=== PATIENT | female | born 1945 | race Caucasian/White ===

== ENCOUNTER 2017-07-16 03:21 | Inpatient (IN) | payer OTHER ==
[~2017-07-16] VITALS: Ht 162.6 cm; Wt 81.6 kg
[~2017-07-16 03:21] MED LIST: DOXYCYCLINE MO100 MG PO; KLOR-CON 1010 ME1 PO; MEDROL DOSEPAK1 PAC PO; TRIAMTERENE-HC1 EAC1 PO
--- NOTE | 2017-07-16 15:09 | Operative Report ---
Operative/Inv Procedure Report Surgery Date: 07/16/17 Name of Procedure: Laparoscopic right colectomy Pre-Operative Diagnosis: Adenocarcinoma involving distal ascending colon Post-Operative Diagnosis: Adenocarcinoma involving distal adenocarcinoma Estimated Blood Loss: scant Surgeon/Assistant Paralegal: Bi Lim Jr., DO Anesthesia: general endotracheal tube, block Monitors: Per routine Implants: None Urine Output: Adequate Drains: None Specimens: Right colon with portion of terminal ileum Complications: None Condition: Good Operative Indication: This is a 71-year-old female who had a colonoscopy for the evaluation of microscopic anemia. She was found to have a mass at about the level of the hepatic flexure which was described as an apple core lesion. Biopsies were performed and proved this lesion to be a adenocarcinoma. Preoperative CT scans were obtained and did not demonstrate evidence of metastasis. She underwent preoperative risk assessment and clearance and then was scheduled for surgery Operative/Procedure Note Note: On the day before her operation she did a bowel prep at home including oral laxatives and oral antibiotics. 3 hours before coming to the hospital she drinks 12 ounces of juice. She presented to [facility] she received IV antibiotics prior to induction of anesthesia and she received oral alvimopan in the holding area. She was taken into the operating room placed in supine position on the operating table. She underwent induction of general anesthesia, and an endotracheal tube was placed. A Rowell catheter was placed and bilateral tap blocks were performed by the anesthesia department. His left arm was tucked and then the abdomen was prepped and draped in usual fashion. We gained access to the abdominal cavity using a Almazan technique. Almazan port was placed suprapubic umbilical in the midline. The abdomen was insufflated to 15 mmHg and 3 additional 5 mm ports were placed: Left lower quadrant, left upper quadrant and suprapubic. Next laparoscopic exploration of the abdominal cavity was performed. The liver appeared normal. The tattoo was visible on the proximal side of the hepatic flexure. The cecum was grasped and elevated towards the anterior abdominal wall. This caused tenting the mesentery and I could see the ileocolic vascular pedicle. A window was made along the inferior edge of the pedicle in the retroperitoneal space was entered. Through this window identified the duodenum and bluntly swept the duodenum towards the midline. The ileocolic vessels were then skeletonized and divided with the vessel sealing device. Next a medial lateral dissection was performed the posterior nasal colon from introitus fascia and the retroperitoneum. I continued this dissection into the lateral wall of the abdominal cavity in the lesser sac were entered. White line of Toldt was taken down, and portion of the gastrocolic ligament was taken down. At this point we had completely mobilized the right colon to the midtransverse colon. A grasper was used to hold the appendix and the Almazan port was lengthened to 5 cm. A wound protector was placed through this port and the specimen was easily extracted. Chose my proximal site of transection and cleared the mesentery here with the LigaSure. The terminal ileum was divided with the ADONAY stapler 80 mm blue load. I chose my distal site of transection at least 5 cm beyond the palpable tumor. The mesentery was cleared here with the vessel sealer and once again a ADONAY 80 mm blue load stapler was used to divide the bowel. The specimen was removed from the field. The 2 transected portions of the bowel were aligned and tacked together with a Vicryl suture. 2 enterotomies were intentionally created by excising the corners of the staple lines. A ADONAY 80 stapler was used to create a common channel. One arm of the stapling device was placed down each limb of the bowel. The stapler was closed and fired. I inspected the lumen which was widely patent and nonbleeding. The edges of the enterotomy were approximated with Allis clamps and a TA 60 was used to close the enterotomy. 3-0 Vicryl sutures were placed in the crotch of the staple line to prevent tension on the staple line. The anastomosis was reduced back into the abdominal cavity. The wound protector and dirte instruments were removed from the field. New clean measurements were brought onto the field and we began closure. The fascia at the extraction port was closed with a running 0 PDS suture. The subcutaneous tissue was copious irrigated with sterile saline and the incision was closed with skin rosario. The three 5 mm ports were closed with skin glue. Dry sterile dressing was applied over the extraction site The patient was exiting operating room taken recovery area in good condition. She tolerated the procedure well and at the end of the procedure all needle sponges and measurements were accounted for. Findings: Tumor and distal ascending colon Discharge Disposition: Same Day Admissions CC: Gilberto JERRY,Liyah
--- NOTE | 2017-07-16 16:30 | Admission Core Measures ---
Acute Coronary Syndrome (CM) ACS Core Measures Acute Coronary Syndrome Diagnosis No Congestive Heart Failure (NEW) CHF Core Measures Congestive Heart Failure Diagnosis No Cerebrovascular Accident (NEW) CVA Core Measures CVA/TIA Diagnosis No Venous Thromboembolism VTE Core Dickson (View Protocol) VTE Risk Factors Age>40 No Mechanical VTE Prophylaxis d/t N/A MechProphylax Ordered No VTE Pharm Prophylaxis d/t NA PharmProphylax ordered Problem List As ranked by this Provider includes Assessment & Plan 1. Status post partial resection of colon 2. Colon cancer HOME MEDS Home Med List Potassium Chloride (Klor-Con 10) 10 MEQ TABLET.ER 1 TAB PO DAILY SUPPLEMENT ( Reported) Triamterene/Hydrochlorothiazid (Triamterene-Hctz 37.5-25 MG Tb) 37.5 MG-25 MG TABLET 1 TAB PO DAILY BP (Reported)
--- NOTE | 2017-07-16 16:33 | Surgical Discharge Summary ---
Visit Information Visit Dates Admission Date: 07/16/17 History of Present Illness Chief Complaint: colon cancer, required laparoscopic right-sided hemicolectomy Medical History Cardiovascular: hypertension Cancer(s): BREAST CA RIGHT Isolation History: Standard Psychosocial History What is Your Primary Language? Georgian Hospital Course Course Attending Physician: Bi Lim Jr., DO Primary Care Physician: Isidro Gamez DO Hospital Course: The patient underwent a laparoscopic right-sided hemicolectomy which went without complications. Patient did well postoperatively, her diet was advanced as tolerated, her vital signs are stable her lab values were acceptable, she received heparin subcutaneous for DVT prophylaxis, she is up and ambulatory and had spontaneous return of bowel function and was discharged home in stable condition. Complications: None Allergies: Coded Allergies: latex (Intermediate, RASH 03/22/16) oxycodone (From Percocet) (COLD SWEATS 03/22/16) Disposition Summary Disposition Principal Diagnosis: Right-sided colon cancer Additional Diagnosis: Same status post right hemicolectomy Discharge Disposition: home or self care Discharge Instructions General Discharge Information Code Status: Full Code Patient's Diet: Regular Patient's Activity: No lifting greater than 10 pounds, no straining Follow-Up Instructions/Appts: To follow-up with Bi Lim DO in 7-10 days Medications at Discharge Discharge Medications: Continue taking these medications: Potassium Chloride (Klor-Con 10) 10 MEQ TABLET.ER 1 Tablet ORAL DAILY Triamterene/Hydrochlorothiazid (Triamterene-Hctz 37.5-25 MG Tb) 37.5 MG-25 MG TABLET 1 Tablet ORAL DAILY
--- NOTE | 2017-07-16 16:36 | Patient Discharge Instructions ---
Discharge Instructions General Discharge Information You were seen/treated for: Right-sided colon cancer status post laparoscopic Hemicolectomy You had these procedures: Laparoscopic right-sided hemicolectomy Watch for these problems: Worsening abdominal pain, nausea, vomiting, fever, abdominal distention, drainage from the wounds, redness from the wounds Call Surgeon to remove: Rayshawn (7-10 days) Do not soak the wound: Yes No bath, but you may shower: Yes Other wound care: Band-Aids tp incisions Diet Continue normal diet: Yes Recommended Diet: Low Residue Activity Full Activity/No Limits: No Activity Self Limited: Yes Pounds, do NOT lift more than: 10 Acute Coronary Syndrome Inclusion Criteria At DC or during hospital stay patient has or had the following: ACS DIAGNOSIS No Discharge Core Measures Meds if any: Prescribed or Continued at Discharge Meds if any: NOT Prescribed or Continued at Discharge Congestive Heart Failure Inclusion Criteria At DC or during hospital stay patient has or had the following: CHF DIAGNOSIS No Discharge Core Measures Meds if any: Prescribed or Continued at Discharge Meds if any: NOT Prescribed or Continued at Discharge Cerebrovascular accident Inclusion Criteria At DC or during hospital stay patient has or had the following: CVA/TIA Diagnosis No Discharge Core Measures Meds if any: Prescribed or Continued at Discharge Meds if any: NOT Prescribed or Continued at Discharge Venous thromboembolism Inclusion Criteria VTE Diagnosis No VTE Type NONE VTE Confirmed by (Test) NONE Discharge Core Measures - Per Current guidelines, there needs to be overlap - treatment for the first 5 days of Warfarin therapy. - If discharged on Warfarin prior to 5 days of - overlap therapy, the patient will need to be - assessed for post discharge needs including - *Post discharge parental anticoagulation - *Warfarin and/or parental anticoagulation education - *Follow up date to check INR post discharge At least 5 days overlap therapy as Inpatient No Meds if any: Prescribed or Continued at Discharge Note: Overlap Therapy is Warfarin and Anticoagulant Meds if any: NOT Prescribed or Continued at Discharge
--- NOTE | 2017-07-16 17:24 | PN- General Surgery ---
Subjective Subjective: POC: mild soreness of the mid abdominal region. no other complaints. no nv. Objective Vital Signs and I&Os Intake & Output 07/16 1600 07/16 0000 07/15 0000 Intake Total Output Total Balance Patient 180 lb Weight vital Signs stable, afebrile Physical Exam: Well-developed well-nourished no apparent distress. HEENT: Atraumatic, extraocular motion intact Neck: Supple, no lymphadenopathy Respiratory: No respiratory distress Abdomen: dressings clean dry and intact. Minimal midline abdominal tenderness as expected. EXtremities: No edema, no calf pain Neuro: Alert and oriented x3 Psych: Mood affect normal, normal memory normal judgment. Skin: Warm and dry, no rash on exposed skin Assessment/Plan Assessment/Plan Postop day #0 status post right-sided laparoscopic hemicolectomy secondary to colon cancer Clears for now Pain medication as needed IV fluids Following labs in a.m. Heparin subcutaneous for DVT ppx Dressing change pod2 Monitor for return of bowel function Core Measures Venous Thromboembolism VTE Risk Factors Age>40 No Mechanical VTE Prophylaxis d/t N/A MechProphylax Ordered No VTE Pharm Prophylaxis d/t NA PharmProphylax ordered
[2017-07-16 17:53] VITALS: BP 122/70
[2017-07-16 20:00] VITALS: BP 124/70
[2017-07-17 00:23] VITALS: BP 116/70
[2017-07-17 03:57] VITALS: BP 118/64
--- NOTE | 2017-07-17 07:58 | PN- General Surgery ---
See Addendum Subjective Subjective: Awake, alert No complaints overnight Pain is tolerable with meds although she hasn't ambulated yet and is afraid she may need something stronger than tylenol IV - she doesn't want narcotics. Mild nausea with clears last night - tolerating water overnight - has not had a breakfast tray delivered yet this morning but is not nauseated now. No flatus yet but feels "gurgling" Objective Vital Signs and I&Os Vital Signs Date Time Temp Pulse Resp B/P B/P Pulse O2 O2 Flow FiO2 Mean Ox Delivery Rate 07/17 0357 97.5 63 20 118/64 97 Nasal 2.0L Cannula 07/17 0023 97.6 71 20 116/70 96 Nasal 2.0L Cannula 07/17 0000 Nasal 2.0L Cannula 07/16 1999 97.5 72 18 124/70 98 Nasal 1.0L Cannula 07/16 1936 Nasal 2.0L Cannula 07/16 1846 96 Nasal 3.0L Cannula 07/16 1753 97.9 70 18 122/70 96 Nasal 3.0L Cannula Intake & Output 07/17 0800 07/17 0000 07/16 1600 07/16 0800 07/16 0000 07/15 1600 Intake Total 1185 370 Output Total 1200 250 Balance -15 120 Intake, IV 945 250 Intake, Oral 240 120 Number 0 0 Bowel Movements Output, 0 Drainage Output, Urine 1200 250 Patient 180 lb 180 lb Weight Weight Reported by Patient Measurement Method Physical Exam: afebrile, vss General: alert and oriented times three nael: clear anteriorly bilaterally, RRR Abd: soft, nondistended, good bs throughout Wound: dressed, dry Ext: warm, no edema, no calf tenderness, ALPS in place Current Medications: Current Medications Sig/Rohan Start time Last Medication Dose Route Stop Time Status Admin Acetaminophen 1,000 MG Q6P PRN 07/16 1915 AC 07/17 N/A 1 UNIT IV 0418 Acetaminophen 650 MG Q6P PRN 07/16 1800 DC PO Alvimopan 12 MG BID 07/17 1000 AC PO 07/23 0959 Alvimopan 12 MG ONCE ONE 07/16 1045 DC PO 07/16 1046 Dextrose/Sodium 1,000 ML Q13H 07/17 0515 AC 07/17 Chloride IV 0532 Dextrose/Sodium 1,000 ML .[id number] 07/16 1800 DC 07/16 Chloride IV 1852 Fentanyl Citrate 250 MCG .STK-MED ONE 07/16 1110 DC IM 07/16 1111 Heparin Sodium 5,000 UNIT Q8 07/16 2200 AC 07/17 (Porcine) SC 0532 Hydromorphone HCl 2 MG .STK-MED ONE 07/16 1539 DC IM 07/16 1540 Hydromorphone HCl 2 MG .STK-MED ONE 07/16 1501 DC IM 07/16 1502 Hydromorphone HCl 2 MG .STK-MED ONE 07/16 1110 DC IM 07/16 1111 Influenza Virus 0.5 ML ONCE ONE 07/16 1830 DC Vaccine IM 07/16 1831 Meperidine HCl 50 MG .STK-MED ONE 07/16 1500 DC IM 07/16 1501 Midazolam HCl 2 MG .STK-MED ONE 07/16 1110 DC IM 07/16 1111 Morphine Sulfate 2 MG Q2P PRN 07/16 1900 AC IV Morphine Sulfate 4 MG Q2P PRN 07/16 1800 DC IV Morphine Sulfate 6 MG Q2P PRN 07/16 1800 DC IV Omeprazole 40 MG DAILY AC 07/17 0700 AC 07/17 PO 0532 Ondansetron HCl 4 MG Q6P PRN 07/16 1800 AC IV Potassium Chloride 10 MEQ DAILY 07/17 1000 AC PO Promethazine HCl 12.5 MG Q6P PRN 07/16 1800 AC IV 07/23 1429 Scopolamine HBr 0 .STK-MED ONE 07/16 1240 DC TOP Triamterene/HCTZ 1 CAP DAILY 07/17 1000 AC PO Assessment/Plan Assessment/Plan 71yo female s/p lap right colectomy pod 1 continue entereg until bowel function returns hep sc for dvt ppx ambulate add toradol for pain continue clears this morning - advance if flatus Core Measures Venous Thromboembolism VTE Risk Factors Age>40 No Mechanical VTE Prophylaxis d/t N/A MechProphylax Ordered No VTE Pharm Prophylaxis d/t NA PharmProphylax ordered
[2017-07-17 08:09] VITALS: BP 118/62
[2017-07-17 09:37] LABS: ABSOLUTE BASOPHIL COUNT 0 /CUMM (0.0-0.2); ABSOLUTE EOSINOPHIL COUNT 0 /CUMM (0.0-0.7); ABSOLUTE LYMPH COUNT 0.7 /CUMM (1.2-3.4); ABSOLUTE MONOCYTE COUNT 0.4 /CUMM (0.10-0.60); BASOPHIL % 0 % (0.0-2.0); EOSINOPHIL % 0 % (0-5); GRANULOCYTE % 93.1 % (42.2-75.2); HEMATOCRIT 33.2 % (37-47); MEAN CORPUSCULAR HGB 23.7 PG (27.0-31.0); MEAN CORPUSCULAR HGB CONC 31.8 G/DL (33.0-37.0); MEAN CORPUSCULAR VOLUME 74.7 FL (81.0-99.0); MEAN PLATELET VOLUME 8.1 FL (7.4-10.4); PLATELET COUNT 269 /CUMM (130-400); RBC DISTRIBUTION WIDTH 17.7 % (11.5-14.5); RED BLOOD CELL CT 4.45 /CUMM (4.20-5.40); WHITE BLOOD CELL COUNT 15.1 /CUMM (4.8-10.8)
[2017-07-17 12:05] VITALS: BP 124/58
[2017-07-17 16:00] VITALS: BP 128/52
[2017-07-17 22:15] VITALS: BP 134/68
[2017-07-18 06:13] VITALS: BP 136/82
--- NOTE | 2017-07-18 08:33 | PN- General Surgery ---
See Addendum Subjective Subjective: Patient with complaining of gas pain and mild distention. She is tolerating her clear liquid diet. She is having small amounts of flatus. She states she only got up and walked one time yesterday. Pain is controlled with pain medication. No fever, no flulike illness Objective Vital Signs and I&Os Vital Signs Date Time Temp Pulse Resp B/P B/P Pulse O2 O2 Flow FiO2 Mean Ox Delivery Rate 07/18 0613 97.7 78 20 136/82 96 Room Air 07/17 2215 98.0 60 16 134/68 94 Room Air 07/17 1600 98.0 61 16 128/52 97 Room Air 07/17 1205 97.6 68 20 124/58 98 Nasal 2.0L Cannula Intake & Output 07/18 1600 07/18 0800 07/18 0000 07/17 1600 07/17 0800 07/17 0000 Intake Total 988 528 1921 1185 370 Output Total 8428 950 7759 1200 250 Balance -210 -235 -80 -15 120 Intake, IV 600 225 500 945 250 Intake, Oral 240 240 600 240 120 Number 0 0 0 Bowel Movements Output, 0 Drainage Output, Urine 2564 342 9884 1200 250 Patient 180 lb Weight Weight Reported by Patient Measurement Method Physical Exam: Well-developed well-nourished no apparent distress. HEENT: Atraumatic, extraocular motion intact Neck: Supple, no lymphadenopathy Respiratory: No respiratory distress Abdomen: Mild to moderate distention, appropriately tender midline, dressing is clean dry and intact. Positive bowel sounds Extremities: No edema, no calf pain Neuro: Alert and oriented x3 Psych: Mood affect normal, normal memory normal judgment. Skin: Warm and dry, no rash on exposed skin Results Last 48 Hours of Labs: Laboratory Tests 07/18 07/17 0721 0728 Chemistry Sodium (137 - 145 mmol/L) Pending 141 Potassium (3.5 - 5.1 mmol/L) Pending 3.9 Chloride (98 - 107 mmol/L) Pending 103 Carbon Dioxide (22 - 30 mmol/L) Pending 25 Anion Gap (5 - 16) Pending 12 BUN (7 - 17 mg/dL) Pending 13 Creatinine (0.5 - 1.0 mg/dL) Pending 0.6 Estimated GFR (>60 ml/min) > 60 BUN/Creatinine Ratio (7 - 25 %) Pending 21.7 Hematology CBC w Diff MAN DIFF ORDERED WBC (4.8 - 10.8 /CUMM) 15.1 H RBC (4.20 - 5.40 /CUMM) 4.45 Hgb (12.0 - 16.0 G/DL) 10.6 L Hct (37 - 47 %) 33.2 L MCV (81.0 - 99.0 FL) 74.7 L MCH (27.0 - 31.0 PG) 23.7 L RDW (11.5 - 14.5 %) 17.7 H Plt Count (130 - 400 /CUMM) 269 MPV (7.4 - 10.4 FL) 8.1 Gran % (42.2 - 75.2 %) 93.1 H Lymphocytes % (20.5 - 51.1 %) 4.5 L Monocytes % (1.7 - 9.3 %) 2.4 Eosinophils % (0 - 5 %) 0 Basophils % (0.0 - 2.0 %) 0 Absolute Granulocytes (1.4 - 6.5 /CUMM) 14.0 H Segmented Neutrophils (42.2 - 75.2 %) 78 H Band Neutrophils (0.0 - 5.0 %) 16 H Absolute Lymphocytes (1.2 - 3.4 /CUMM) 0.7 L Lymphocytes (20.5 - 51.1 %) 3 L Monocytes (1.7 - 9.3 %) 3 Absolute Monocytes (0.10 - 0.60 /CUMM) 0.4 Absolute Eosinophils (0.0 - 0.7 /CUMM) 0 Absolute Basophils (0.0 - 0.2 /CUMM) 0 Platelet Estimate (ADEQUATE) ADEQUATE Hypochromic-Microcytic 2+ Poikilocytosis 2+ Anisocytosis 1+ Ovalocytes 1+ Elliptocytes 1+ PUBS MCHC (33.0 - 37.0 G/DL) 31.8 L Assessment/Plan Assessment/Plan Postop day #2 status post right hemicolectomy secondary to colon cancer Bi Lim DO to evaluate this morning, potentially advance to full liquid diet for lunch. DC IV fluids DC Rowell Encourage ambulation Monitor for return of bowel function Heparin subcutaneous for DVT prophylaxis Follow am labs Core Measures Venous Thromboembolism VTE Risk Factors Age>40 No Mechanical VTE Prophylaxis d/t N/A MechProphylax Ordered No VTE Pharm Prophylaxis d/t NA PharmProphylax ordered
[2017-07-18 13:42] VITALS: BP 120/64
--- NOTE | 2017-07-18 15:25 | PN- Student ---
Subjective Subjective: Alexandra is a 71yo Caucasain female post op day 2 s/p R hemicolectomy 08/09 known colon CA. Patient states she has a constant 2/10 dull throbbing periumbilical pain which is worse with movement. Rowell removed in am- pt urinating on her own- denies hematuria/dysuria. Her diet has advanced and she tolerated lunch well- no nausea/vomitting/BM. + flatus. in room during interview- Neither have any questions or concerns at this time. Denies H/A, vision changes, shortness of breath, chest pain, nausea, vomitting, diarrhea, paresthesias or syncope. No complaints at this time. Objective Objective: GENERAL: Sitting upright in bed comfortably, in NAD. A+Ox4. IVF in place. RESP: Good respiratory effort, CTAB, no respiratory distress CARDIO: RRR, no M/R/G, S1/S2 audible. ABD: Dressing clean dry and intact. Soft, mild tenderness periumbilically upon light palpation. Loud normoactive bowel sounds audible in all 4 quadrants MUSC: 5/5 strength, full ROM. No edema. No LE pain upon palpation. NEURO: Sensation intact throughout. Results Results: Laboratory Tests 07/18/17 0721: Anion Gap 10, Estimated GFR > 60, BUN/Creatinine Ratio 15.7 07/17/17 0728: Anion Gap 12, Estimated GFR > 60, BUN/Creatinine Ratio 21.7, CBC w Diff MAN DIFF ORDERED, RBC 4.45, MCV 74.7 L, MCH 23.7 L, RDW 17.7 H, MPV 8.1, Gran % 93.1 H, Lymphocytes % 4.5 L, Monocytes % 2.4, Eosinophils % 0, Basophils % 0, Absolute Granulocytes 14.0 H, Segmented Neutrophils 78 H, Band Neutrophils 16 H, Absolute Lymphocytes 0.7 L, Lymphocytes 3 L, Monocytes 3, Absolute Monocytes 0.4, Absolute Eosinophils 0, Absolute Basophils 0, Platelet Estimate ADEQUATE, Hypochromic-Microcytic 2+, Poikilocytosis 2+, Anisocytosis 1+, Ovalocytes 1+, Elliptocytes 1+, PUBS MCHC 31.8 L Microbiology 07/16 1230 URINE ROUT: Urine Culture - COMP Vital Signs Date Time Temp Pulse Resp B/P B/P Pulse O2 O2 Flow FiO2 Mean Ox Delivery Rate 07/18 1342 97.9 75 20 120/64 93 Room Air 07/18 0613 97.7 78 20 136/82 96 Room Air 07/17 2215 98.0 60 16 134/68 94 Room Air 07/17 1600 98.0 61 16 128/52 97 Room Air Intake & Output 07/18 1600 07/18 0800 07/18 0000 Intake Total 800 840 465 Output Total 1400 1050 700 Balance -600 -210 -235 Intake, IV 600 225 Intake, Oral 800 240 240 Output, Urine 1400 1050 700 Patient 180 lb Weight Assessment/Plan Assessment: Alexandra is a 71 yo female post op day 2 s/p hemicolectomy r/t known colon CA. Pt is recovering well from the procedure. Her diet was advanced from clears today and she is tolerating well although she has not had BM yet. She is passing flatus and urinating without complication. Patient is in minimal pain and her nausea has ceased. No questions or complaints at this time. Plan: Encourage assisted/monitored ambulation throughout the unit. Advance diet to regular diet. Increase fluid intake- fluid balance currently -600. Continue pain medication as ordered. -D/C Kdur as K+ levels are WNL Current Medications Sig/Rohan Start time Last Medication Dose Route Stop Time Status Admin Acetaminophen 1,000 MG Q6P PRN 07/16 1915 AC 07/17 N/A 1 UNIT IV 0418 Alvimopan 12 MG BID 07/17 1000 AC 07/18 PO 07/23 0959 0858 Dextrose/Sodium 1,000 ML Q13H 07/17 0515 DC 07/17 Chloride IV 2047 Heparin Sodium 5,000 UNIT Q8 07/16 2200 AC 07/18 (Porcine) SC 1322 Ketorolac 15 MG Q6 PRN 07/17 0815 AC 07/18 Tromethamine IV 1325 Morphine Sulfate 2 MG Q2P PRN 07/16 1900 AC IV Omeprazole 40 MG DAILY AC 07/17 0700 AC 07/17 PO 0532 Ondansetron HCl 4 MG Q6P PRN 07/16 1800 AC IV Potassium Chloride 10 MEQ DAILY 07/17 1000 AC 07/18 PO 0857 Promethazine HCl 12.5 MG Q6P PRN 07/16 1800 AC IV 07/23 1429 Triamterene/HCTZ 1 CAP DAILY 07/17 1000 AC 07/18 PO 0857
[2017-07-18 21:54] VITALS: BP 144/82
[2017-07-19 06:37] VITALS: BP 116/66
--- NOTE | 2017-07-19 08:27 | PN- General Surgery ---
See Addendum Subjective Subjective: Passed a large amount of flatus yesterday and had a small, loose bm yesterday. [place] signficant reduction in distension after. Diet was advanced to full liquid. Tolerating well with no increase in distension, no nausea, vomitting, hiccupping or belching. Has had less flatus today and no additional bowel movement. States that she is feeling the urge presently. Denies chest pain, shortness of breath and difficulty breathing. Has been OOB ambulating. Has been voiding. Objective Vital Signs and I&Os Vital Signs Date Time Temp Pulse Resp B/P B/P Pulse O2 O2 Flow FiO2 Mean Ox Delivery Rate 07/19 0637 98.2 78 18 116/66 95 Room Air 07/18 2154 98.0 91 18 144/82 96 Room Air 07/18 1342 97.9 75 20 120/64 93 Room Air Intake & Output 07/19 1600 07/19 0800 07/19 0000 07/18 1600 07/18 0800 07/18 0000 Intake Total 150 1000 800 840 465 Output Total 1000 1400 1050 700 Balance 150 0 -600 -210 -235 Intake, IV 600 225 Intake, Oral 150 1000 800 240 240 Number 1 Bowel Movements Output, Urine 1000 1400 1050 700 Patient 180 lb Weight Physical Exam: General: Alert and oriented x3, no acute distress Cardiac: RRR, s1s2 Pulm: C T A bilaterally Abdomen: Soft, mildly distended. +bs x4 quadrants. Radha-incisional pain present. No peritonitic signs. Dressing dry and intact. No surrounding erythema Extremities: Moves all extremities, distal sensation intact. Skin warm and well perfused. DP pulses palpable bilaterally. Bilateral calves soft and non- tender. No peripheral edema noted. Assessment/Plan Assessment/Plan This is a 71 year old female POD 3, s/p right hemicolectomy. -Continue full liquid diet until improved bowel fxn, then will dc entereg and advance to low residue -Continue OOB -Continue alps/hep sub q for dvt ppx -Anticipate dc to home when bowel function returns and low residue diet tolerated -Will discuss with Ja Kothari or Farrah Core Measures Venous Thromboembolism VTE Risk Factors Age>40 No Mechanical VTE Prophylaxis d/t N/A MechProphylax Ordered No VTE Pharm Prophylaxis d/t NA PharmProphylax ordered
[2017-07-19 09:42] VITALS: BP 124/70
[2017-07-19] MEDS ORDERED: TYLENOL WITH C1 EACH PO (10:08)
[2017-07-19 14:57] VITALS: BP 119/64
== END 2017-07-19 16:08 | DRG 331 ==
LOC: 2NB 03:21 → SDA 03:21 → ENRESERV 16:23 → ENTRNSPT 17:12 → 2NB 17:36 → CMPTRNSPT 17:45 → DELTRNSPT 07-19 15:23 → ENTRNSPT 07-19 15:24 → 2NB 07-19 16:08 → CMPTRNSPT 07-19 16:19
PROVIDERS: Physician Assistant Surgical
PROC: 0DBF4ZZ Excision of Right Large Intestine, Percutaneous Endoscopic Approach (ICD-10-PCS; principal; 2017-07-16)
DX: C18.2 Malignant neoplasm of ascending colon (principal); E11.8 Type 2 diabetes mellitus with unspecified complications; I10 Essential (primary) hypertension; Z85.3 Personal history of malignant neoplasm of breast
CPT/HCPCS: 2NBP; 36415; 82436; 87086; C9399; J0131; J0690; J1644; J2550; J7042

== ENCOUNTER → 2017-08-07 | Day surgery (SDC) | payer OTHER ==
[~2017-08-07] VITALS: Ht 162.6 cm; Wt 79.8 kg
[~2017-08-07] MED LIST changes: +TYLENOL WITH C1 EACH PO
--- NOTE | 2017-08-07 11:53 | Operative Report ---
Operative/Inv Procedure Report Surgery Date: 08/07/17 Name of Procedure: left axillary vein Port-A-Cath with ultrasound and fluoroscopic guidance Pre-Operative Diagnosis: Colon cancer Post-Operative Diagnosis: Same Estimated Blood Loss: scant Surgeon/Trainman: Nader JERRY,Salvatore Ruff Anesthesia: local monitored anesthesi Implants: [employer] Operative/Procedure Note Note: Patient brought to the operating room and laid supine. His arm tucked and a roll placed behind the shoulder. His left chest and neck were then prepped and draped. He was sedated. Using ultrasound imaging the left axillary vein was visualized and percutaneously accessed through a left infra-clavicular needle placement, after local anesthesia placed. A wire was placed on the right atrium. Confirmation with fluoroscopic imaging was performed. The left chest was then infiltrated further with local anesthesia an incision made over the wire. An inferiorly based pocket was created with blunt and cautery dissection. The port was placed into the pocket and the catheter measured under fluoroscopic imaging. It was trimmed to 26 cm. Using fluoroscopy the dilator was placed down into the SVC. The wire was removed and passed off the field. The catheter was placed through the peel-away sheath. Sheath was then removed. Final fluoroscopic images show the catheter in the atrial SVC junction. The catheter was aspirated and flushed with concentrated heparin. The port was anchored to the deep subcutaneous tissues tissues with 0 Vicryl suture. The skin was closed with 3-0 and 4-0 Vicryl. Steri-Strips and sterile dressing applied. Sponge and needle counts are correct. CC: Carina Steel DO,Bi Kennedy; Mirian JERRY,Celso Gallegos; Isidro Gamez DO
--- NOTE | 2017-08-07 13:22 | RADIOLOGY REPORT ---
EXAMINATION: XR PORTABLE CHEST CLINICAL INFORMATION: Left chest port. Catheter placement. Evaluate for pneumothorax. COMPARISON: Chest radiograph 10/04/2009. TECHNIQUE: Portable frontal view of the chest was obtained. FINDINGS: A left pectoral port has been placed and the catheter is located within the left subclavian vein. The tip of the catheter is located at the cavoatrial junction. There is no evidence of pneumothorax. Lungs are clear and well expanded. No consolidative disease or effusion. The cardiac silhouette and upper media cells contours are normal. No acute osseous finding. IMPRESSION: There are expected changes associated with the placement of a left pectoral port. No evidence of pneumothorax.
--- NOTE | 2017-08-07 15:30 | RADIOLOGY REPORT ---
EXAMINATION:\H\ \N\XR CHEST CLINICAL INFORMATION: Fluoroscopic imaging for left-sided Port-A-Cath insertion. COMPARISON: Plain film portable chest x-ray dated 08/07/2017. TECHNIQUE: Frontal view of the chest was obtained. FINDINGS: 2 fluoroscopic images are submitted for evaluation. A left-sided catheter is visualized within the left subclavian vein, the tip is in the mid to distal SVC. Fluoroscopic imaging time: 0.4 minutes. Cumulative dose (LDF) 2.97 mg. IMPRESSION: Left Port-A-Cath insertion.
== END ==
LOC: STS 01:51
DX: C18.2 Malignant neoplasm of ascending colon (principal); Z85.3 Personal history of malignant neoplasm of breast
CPT/HCPCS: 71045; C1788; J0690; J1644; J2250; J3490